=== PATIENT | female | born 1950 | race Two or more races ===

== ENCOUNTER 2018-10-06 15:00 | Emergency (ER) | payer MEDICARE ==
[~2018-10-06] VITALS: Ht 170.2 cm; Wt 74.0 kg
[2018-10-06] MEDS ORDERED: CLONIDINE 0.1MG TABLET PO ONE (16:15)
[2018-10-06 16:19] LABS: BASOPHILS % 0.7 % (0.0-2.0); EOSINOPHILS % 1.7 % (0.0-5.0); HEMATOCRIT. 28.1 % (36.0-48.0); HEMOGLOBIN. 9.3 g/dL (12.0-16.0); LYMPHOCYTES % 17.7 % (20.0-50.0); MEAN CORPUSCULAR HEMOGLOBIN 29.2 pg (28.0-32.0); MONOCYTES % 7.2 % (2.0-8.0); NEUTROPHILS % 72.7 % (40.0-76.0); PLATELET 221 x1000/uL (130-400); RED BLOOD CELL COUNT 3.19 mill/uL (4.2-5.4); RED CELL DISTRIBUTION WIDTH 13.3 % (11.6-14.6)
[2018-10-06 16:24] LABS: CHLORIDE 108 mEq/L (98-107)
[2018-10-06 16:26] LABS: INR 0.9; PARTIAL THROMBOPLASTIN TIME 31.3 sec (23.4-31.0); PROTHROMBIN TIME 9.7 sec (9.6-11.0)
[2018-10-06] MEDS ORDERED: SODIUM POLYSTYRENE SULFONATE 15 G/60 ML BOT PO ONE (17:15)
[2018-10-06 17:21] LABS: T4 FREE 1.2 ng/dL (0.76-1.46)
[2018-10-06 19:00] VITALS: BP 142/71
[2018-10-07] MEDS ORDERED: CARV6.2548 MT (09:32)
[2018-10-07] MEDS ORDERED: HYDR-4135 MT (09:32)
[2018-10-07] MEDS ORDERED: FURO20TA4 MT (09:32)
[2018-10-07] MEDS ORDERED: PIOG15TA23 MT (09:32)
[2018-10-07] MEDS ORDERED: INSLIS SUBCUT (09:32)
[2018-10-07] MEDS ORDERED: LEVO150T8 MT (09:32)
[2018-10-07] MEDS ORDERED: ATOR40TA70 MT (09:32)
[2018-10-07] MEDS ORDERED: METF-415 PO (09:32)
[2018-10-07] MEDS ORDERED: LISI-604 MT (09:32)
[2018-10-07] MEDS ORDERED: INSU100I28 SQ (09:57)
== END 2018-10-06 19:05 | disposition home or self-care (01) ==
LOC: ER 15:00 → CANBEDREQ 20:37
DX: E87.5 Hyperkalemia (principal); E11.9 Type 2 diabetes mellitus without complications; I10 Essential (primary) hypertension; E03.9 Hypothyroidism, unspecified; F17.200 Nicotine dependence, unspecified, uncomplicated
CPT/HCPCS: 36415; 71045; 83880; 84439; 84443; 84481; 84484; 93005; 99284

== ENCOUNTER 2018-10-07 07:18 | Inpatient (IN) | payer MEDICARE ==
[~2018-10-07] VITALS: Ht 167.6 cm; Wt 72.6 kg
[2018-10-07 08:15] LABS: BASOPHILS % 0.7 % (0.0-2.0); EOSINOPHILS % 1.8 % (0.0-5.0); HEMATOCRIT. 30.7 % (36.0-48.0); HEMOGLOBIN. 9.9 g/dL (12.0-16.0); LYMPHOCYTES % 23.2 % (20.0-50.0); MEAN CORPUSCULAR HEMOGLOBIN 28.5 pg (28.0-32.0); MEAN CORPUSCULAR VOLUME 87.9 fL (81.0-99.0); MEAN PLATELET VOLUME 10.2 fl (7.4-10.4); MONOCYTES % 6.8 % (2.0-8.0); NEUTROPHILS % 67.5 % (40.0-76.0); PLATELET 236 x1000/uL (130-400); RED BLOOD CELL COUNT 3.49 mill/uL (4.2-5.4); RED CELL DISTRIBUTION WIDTH 13.7 % (11.6-14.6)
[2018-10-07 08:16] LABS: CHLORIDE 105 mEq/L (98-107)
[2018-10-07] MEDS ORDERED: SODIUM CHLORIDE 0.9% 1,000 ML IV ONE (08:22)
[2018-10-07 09:07] LABS: CLARITY URINE CLEAR (CLEAR); COLOR URINE YELLOW (YELLOW); KETONES URINE NEGATIVE (NEGATIVE); LEUKOCYTE ESTERASE URINE TRACE (NEGATIVE); NITRITE URINE NEGATIVE (NEGATIVE); OCCULT BLOOD URINE 1+ (NEGATIVE); PH URINE 7.5 (4.5-8.0); PROTEIN URINE 3+ (NEGATIVE); SPECIFIC GRAVITY URINE 1.007 (1.005-1.030); UROBILINOGEN URINE 0.2 E.U./dL (0.2-1.0)
[2018-10-07] MEDS ORDERED: ACETAMINOPHEN 325MG TABLET PO PRN (09:15)
[2018-10-07] MEDS ORDERED: ONDANSETRON HCL 4MG/2ML INJ IV PRN (09:15)
[2018-10-07] MEDS ORDERED: CLONIDINE 0.1MG TABLET PO PRN (09:15)
[2018-10-07] MEDS ORDERED: AMLODIPINE 5MG TABLET PO SCH (09:23)
[2018-10-07] MEDS ORDERED: LISI-604 MT (09:32)
[2018-10-07] MEDS ORDERED: ATOR40TA70 MT (09:32)
[2018-10-07] MEDS ORDERED: CARV6.2548 MT (09:32)
[2018-10-07] MEDS ORDERED: LEVO150T8 MT (09:32)
[2018-10-07] MEDS ORDERED: HYDR-4135 MT (09:32)
[2018-10-07] MEDS ORDERED: FURO20TA4 MT (09:32)
[2018-10-07] MEDS ORDERED: METF-415 PO (09:32)
[2018-10-07] MEDS ORDERED: INSLIS SUBCUT (09:32)
[2018-10-07] MEDS ORDERED: PIOG15TA23 MT (09:32)
[2018-10-07] MEDS ORDERED: INSU100I28 SQ (09:57)
[2018-10-07] MEDS ORDERED: CEFTRIAXONE 1 G PREMIX 50 ML IV ONE (11:15)
[2018-10-07 14:48] VITALS: BP 142/59
[2018-10-07] MEDS ORDERED: LISINOPRIL 20MG TABLET PO SCH (15:17)
[2018-10-07] MEDS ORDERED: PNEUMOCOCCAL 23-VAL P-SAC VAC 0.5 ML IM ONE (15:30)
[2018-10-07 17:42] VITALS: BP 156/55
[2018-10-07] MEDS ORDERED: CARVEDILOL 6.25 MG TABLET PO SCH (21:00)
[2018-10-08] MEDS ORDERED: LEVOTHYROXINE SODIUM 150MCG TABLET PO SCH (07:40)
[2018-10-08] MEDS ORDERED: FUROSEMIDE 20MG TABLET PO SCH (09:00)
== END 2018-10-07 18:09 | disposition home or self-care (01) | DRG 637 ==
LOC: ER 07:18 → 7WST 08:59 → EDBEDREQ 09:04 → EDBEDREQSVC 09:04 → ENRESERV 12:42
PROVIDERS: ADMIT Internal Medicine; ATTEND Internal Medicine
DX: E11.649 Type 2 diabetes mellitus with hypoglycemia without coma (principal); G93.41 Metabolic encephalopathy; E87.5 Hyperkalemia; E03.9 Hypothyroidism, unspecified; E11.65 Type 2 diabetes mellitus with hyperglycemia; D64.9 Anemia, unspecified; F17.210 Nicotine dependence, cigarettes, uncomplicated; I11.0 Hypertensive heart disease with heart failure; I50.9 Heart failure, unspecified; Z79.4 Long term (current) use of insulin; Z79.84 Long term (current) use of oral hypoglycemic drugs; Z71.6 Tobacco abuse counseling
CPT/HCPCS: 36415; 71045; 80048; 82962; 83036; 83735; 83880; 84484; 90732; 93005; 93306; 93970; 96365; 99285; J0696; J7030